=== PATIENT | male | born 1930 | race African-American/Black ===

== ENCOUNTER 2018-06-10 12:34 | Emergency (ER) | payer OTHER ==
[~2018-06-10] VITALS: Ht 177.8 cm; Wt 72.6 kg
[2018-06-10 12:58] VITALS: BP 145/80
--- NOTE | 2018-06-10 12:58 | NUR ---
ED Nurse Note: Pt from home walked in to ED d/t S/P fall on ground level happened 0800 this morning. Pt has a minor swelling around right eye and small abrasion beside it. Denies LOC. Pt also c/o bilateral LLE pain and swelling since mar 2018. No pain at this time. Pt is AAO x4, ambulatory with non labored breathing. Noted BLE pitting edema.
[2018-06-10] MEDS ORDERED: FLOMAX0.4 MG ORAL (13:05)
[2018-06-10] MEDS ORDERED: PROBENECID500 MG PO (13:05)
[2018-06-10] MEDS ORDERED: PROSCAR5 MG ORAL (13:06)
[2018-06-10] MEDS ORDERED: SYNTHROID25 MCG ORAL (13:07)
[2018-06-10] MEDS ORDERED: HYDROCHLOROTH12.5 M2 ORAL (13:07)
[2018-06-10] MEDS ORDERED: LISINOPRIL40 MG ORAL (13:07)
--- NOTE | 2018-06-10 13:27 | NUR ---
ED Nurse Note: Pt taken to CT via g[place]. KING.
--- NOTE | 2018-06-10 13:39 | NUR ---
ED Nurse Note: Pt came back from CT and stable.
--- NOTE | 2018-06-10 13:48 | Diagnostic Imaging Report ---
Indication: Headache Technique: Contiguous 5 mm thick transaxial imaging of the head obtained in a Siemens Sensation [address] scanner. Soft tissue and bone windows generated. Automatic Exposure Control was utilized. Total Dose length Product (DLP): 1312.[address] Dose Index Volume (CTDIvol): 70.38 mGy Comparison: none Findings: There is moderate prominence of the ventricles, basal cisterns, and cerebral sulci consistent with atrophy. Moderate, nonspecific, white matter hypoattenuation is noted throughout the brain consistent with chronic small vessel disease. There is no midline shift, edema, acute hemorrhage, mass effect, or abnormal extra-axial fluid collections. Bones and extra osseous soft tissues are unremarkable. Impression: No acute intracranial bleed, mass effect or edema. Moderate atrophy of the brain. Evidence of chronic small vessel disease involving white matter tracts. The CT scanner at [facility] is accredited by the [employer] and the scans are performed using dose optimization techniques as appropriate to a performed exam including Automatic Exposure control.
--- NOTE | 2018-06-10 14:28 | Emergency Room Report ---
History of Present Illness General Chief Complaint: Multiple Trauma/Fall Source: Patient (Jet Bar MD) Present Illness HPI Patient is an 87-year-old male presented after head injury. Patient was noted to have fallen from standing position. He reports hitting his head on a nightstand. He denies any definite loss of conscious but cannot recall why he fell. Patient reportedly lives alone. He denies any severe pain at this time. He denies any neck pain or weakness. He denies any recent illness or vomiting or diarrhea. Patient states that he had injury approximately 2 hours prior to arrival. (Jet Bar MD) Allergies: Coded Allergies: No Known Allergies (Unverified , 06/10/18) Patient History Reviewed Nursing Documentation: PMH: Agreed; PSxH: Agreed (Jet Bar MD) Nursing Documentation-PMH Past Medical History: No History, Except For Hx Hypertension: Yes (Jet Bar MD) Review of Systems All Other Systems: negative except mentioned in HPI (Jet Bar MD) Physical Exam Vital Signs Date Time Temp Pulse Resp B/P (MAP) Pulse Ox O2 Delivery O2 Flow Rate FiO2 06/10/18 12:48 98.2 67 20 151/81 97 Room Air Sp02 EP Interpretation: reviewed, normal General Appearance: normal inspection, well appearing, no apparent distress, alert, GCS 15, thin Head: atraumatic ENT: normal ENT inspection, hearing grossly normal, normal voice Neck: normal inspection, full range of motion, supple, no bony tend Respiratory: normal inspection, lungs clear, normal breath sounds, no respiratory distress, no retraction, no wheezing Cardiovascular #1: regular rate, rhythm, no edema Gastrointestinal: normal inspection, normal bowel sounds, non tender, soft, no guarding, no hernia Genitourinary: no CVA tenderness Musculoskeletal: normal inspection, back normal, normal range of motion Neurologic: normal inspection, alert, oriented x3, responsive, speech normal Psychiatric: normal inspection, judgement/insight normal, mood/affect normal Skin: normal color, no rash, other - superficial laceration to right eyebrow (Jet Bar MD) Medical Decision Making Diagnostic Impression: Primary Impression: Fall Additional Impressions: Head injury Eyebrow laceration ER Course Patient presented for a fall.Differential diagnosis included was not limited to neck fracture, CVA, close head injury, syncopal episode, basilar ischemia Because of complexity of patient's case laboratory testing and imaging studies were ordered. Patient is noted to have recent head injury. Patient reportedly lives alone. CT imaging of the head read by radiology showed atrophic changes without evident fracture or intracranial hemorrhage. Patient will be placed in observation. (Jet Bar MD) ER Course Patient was signed out to me for final disposition by Dr. Bar. I have also evaluated the patient. Patient is stable for transfer. Patient will be transferred to hospital per patient's insurance. Case was discussed with Dr. Serrano. He has accepted the patient. Patient will be transferred to [facility] [place] for further evaluation. Labs Test 06/10/18 14:00 06/10/18 15:06 White Blood Count 4.7 K/UL (4.8-10.8) Red Blood Count 4.15 M/UL (4.70-6.10) Hemoglobin 12.6 G/DL (14.2-18.0) Hematocrit 38.0 % (42.0-52.0) Mean Corpuscular Volume 91 FL (80-99) Mean Corpuscular Hemoglobin 30.3 PG (27.0-31.0) Mean Corpuscular Hemoglobin Concent 33.2 G/DL (32.0-36.0) Red Cell Distribution Width 11.3 % (11.6-14.8) Platelet Count 180 K/UL (150-450) Mean Platelet Volume 6.5 FL (6.5-10.1) Neutrophils (%) (Auto) 61.9 % (45.0-75.0) Lymphocytes (%) (Auto) 24.8 % (20.0-45.0) Monocytes (%) (Auto) 11.8 % (1.0-10.0) Eosinophils (%) (Auto) 0.6 % (0.0-3.0) Basophils (%) (Auto) 0.9 % (0.0-2.0) Prothrombin Time 11.4 SEC (9.30-11.50) Prothromb Time International Ratio 1.1 (0.9-1.1) Activated Partial Thromboplast Time 27 SEC (23-33) Sodium Level 137 MMOL/L (136-145) Potassium Level 3.7 MMOL/L (3.5-5.1) Chloride Level 101 MMOL/L (98-107) Carbon Dioxide Level 31 MMOL/L (21-32) Anion Gap 5 mmol/L (5-15) Blood Urea Nitrogen 18 mg/dL (7-18) Creatinine 1.3 MG/DL (0.55-1.30) Estimat Glomerular Filtration Rate mL/min (>60) Glucose Level 94 MG/DL (74-106) Calcium Level 9.6 MG/DL (8.5-10.1) Total Bilirubin 0.3 MG/DL (0.2-1.0) Aspartate Amino Transf (AST/SGOT) 19 U/L (15-37) Alanine Aminotransferase (ALT/SGPT) 28 U/L (12-78) Alkaline Phosphatase 65 U/L (46-116) Troponin I 0.002 ng/mL (0.000-0.056) Total Protein 8.0 G/DL (6.4-8.2) Albumin 3.3 G/DL (3.4-5.0) Globulin 4.7 g/dL Albumin/Globulin Ratio 0.7 (1.0-2.7) Urine Color Pale yellow Urine Appearance Clear Urine pH 7 (4.5-8.0) Urine Specific [place] 1.005 (1.005-1.035) Urine Protein 1+ (NEGATIVE) Urine Glucose (UA) Negative (NEGATIVE) Urine Ketones Negative (NEGATIVE) Urine Blood Negative (NEGATIVE) Urine Nitrite Negative (NEGATIVE) Urine Bilirubin Negative (NEGATIVE) Urine Urobilinogen Normal MG/DL (0.0-1.0) Urine Leukocyte Esterase Negative (NEGATIVE) Urine RBC 0-2 /HPF (0 - 0) Urine WBC 0-2 /HPF (0 - 0) Urine Squamous Epithelial Cells Few /LPF (NONE/OCC) Urine Bacteria Occasional /HPF (NONE) (José Miguel Mckenzie MD) EKG Diagnostic Results Rate: normal Rhythm: NSR ST Segments: no acute changes (José Miguel Mckenzie MD) Rhythm Strip Diag. Results EP Interpretation: yes Rate: 50 Rhythm: NSR, no PVC's, no ectopy (José Miguel Mckenzie MD) Last Vital Signs Date Time Temp Pulse Resp B/P (MAP) Pulse Ox O2 Delivery O2 Flow Rate FiO2 06/10/18 12:58 67 20 Room Air 06/10/18 12:48 98.2 151/81 97 Status: unchanged (Jet Bar MD) Status: improved (José Miguel Mckenzie MD) Disposition: XFER SHT-TRM HOSP Condition: Stable Referrals: NON PHYSICIAN (PCP) Jet Bar MD Jun 10, 2018 14:28 José Miguel Mckenzie MD Jun 10, 2018 16:39
[2018-06-10 14:35] LABS: BASOPHILS % (AUTO) 0.9 % (0.0-2.0); EOSINOPHILS % (AUTO) 0.6 % (0.0-3.0); HEMOGLOBIN 12.6 G/DL (14.2-18.0); LYMPHOCYTES % (AUTO) 24.8 % (20.0-45.0); MEAN CORPUSCULAR VOLUME 91 FL (80-99); MONOCYTES % (AUTO) 11.8 % (1.0-10.0); NEUTROPHILS % (AUTO) 61.9 % (45.0-75.0); PLATELET COUNT 180 K/UL (150-450); RED BLOOD COUNT 4.15 M/UL (4.70-6.10); RED CELL DISTRIBUTION WIDTH 11.3 % (11.6-14.8); WHITE BLOOD COUNT 4.7 K/UL (4.8-10.8)
[2018-06-10 14:42] LABS: ANION GAP 5 mmol/L (5-15); BLOOD UREA NITROGEN 18 mg/dL (7-18); CALCIUM 9.6 MG/DL (8.5-10.1); CARBON DIOXIDE 31 MMOL/L (21-32); CHLORIDE 101 MMOL/L (98-107); CREATININE 1.3 MG/DL (0.55-1.30); INR 1.1 (0.9-1.1); POTASSIUM 3.7 MMOL/L (3.5-5.1); SODIUM 137 MMOL/L (136-145)
[2018-06-10 14:47] LABS: ALANINE AMINOTRANSFERASE 28 U/L (12-78); ALBUMIN 3.3 G/DL (3.4-5.0); ALBUMIN/GLOBULIN RATIO 0.7 (1.0-2.7); ALKALINE PHOSPHATASE 65 U/L (46-116); ASPARTATE AMINO TRANSFERASE 19 U/L (15-37); BILIRUBIN,TOTAL 0.3 MG/DL (0.2-1.0)
[2018-06-10 15:00] VITALS: BP 158/90
[2018-06-10 15:22] LABS: APPEARANCE,URINE CLEAR; BILIRUBIN, URINE NEGATIVE (NEGATIVE); COLOR,URINE PALE YELLOW; GLUCOSE, URINE (UA) NEGATIVE (NEGATIVE); KETONES,URINE NEGATIVE (NEGATIVE); LEUKOCYTE ESTERASE ,URINE NEGATIVE (NEGATIVE); NITRITE,URINE NEGATIVE (NEGATIVE); PH,URINE 7 (4.5-8.0); PROTEIN,URINE 1+ (NEGATIVE); UROBILINOGEN,URINE NORMAL MG/DL (0.0-1.0)
--- NOTE | 2018-06-10 16:06 | NUR ---
ED Nurse Note: Warm blankets provided.
[2018-06-10 17:00] VITALS: BP 147/89
--- NOTE | 2018-06-10 18:02 | NUR ---
ED Nurse Note: Report given to Destine[facility] of [facility].
[2018-06-10] MEDS ORDERED: UNOBMED (18:31)
--- NOTE | 2018-06-10 19:10 | NUR ---
HAND-OFF: Report given to Esperanza MAXWELL.
--- NOTE | 2018-06-10 19:13 | NUR ---
Contacted [facility]- another 15 min.
[2018-06-10 19:40] VITALS: BP 151/85
== END 2018-06-10 19:40 | disposition short-term general hospital (02) ==
LOC: EMR 13:15 → EDBEDREQ 14:19 → EMR 19:40
DX: S01.119A Laceration without foreign body of unspecified eyelid and periocular area, initial encounter (principal); W19.XXXA Unspecified fall, initial encounter
CPT/HCPCS: 36415; 70450; 80053; 81001; 84484; 85025; 85610; 85730; 93005; 93970; 99285

== ENCOUNTER 2019-03-02 12:06 | Emergency (ER) | payer MEDICARE, OTHER ==
[~2019-03-02] VITALS: Ht 177.8 cm; Wt 72.6 kg
[~2019-03-02 12:06] MED LIST: FLOMAX0.4 MG ORAL; HYDROCHLOROTH12.5 M2 ORAL; LISINOPRIL40 MG ORAL; PROBENECID500 MG PO; PROSCAR5 MG ORAL; SYNTHROID25 MCG ORAL; UNOBMED
--- NOTE | 2019-03-02 12:32 | NUR ---
ED Nurse Note: Patient walked in due to pain on LLE, lateral side. Patient states 'I jumped off sidewalk block" and landed on left foot and started having pain. Patient applied FIFI wrap for comfort. Patient ambulating with steady gait. No bruise or redness noted on the affected area. Provided comfort measures.
--- NOTE | 2019-03-02 12:53 | NUR ---
ED Nurse Note: U/S tech at bedside.
--- NOTE | 2019-03-02 13:28 | Emergency Room Report ---
History of Present Illness General Chief Complaint: Lower Extremity Injury Source: Patient Present Illness HPI 88-year-old male with history of hypertension and CHF currently controlled here with his caregiver complaining of left ankle pain x2 days after fall and injury. Rating pain 3 out of 10 without radiation. Calf tenderness noted. However patient is wearing tight Joe bandage. Reports that he takes a water pill which does not recall the name. Reports that he often has lots of swelling in bilateral lower extremities. Is ambulating with a cane. Denies any generalized or unilateral weakness. Denies chest pain, shortness of breath , palpitation, headache and dizziness. No signs of trauma noted. Has not taken medication for symptom relief. Allergies: Coded Allergies: No Known Allergies (Unverified , 06/10/18) Patient History Past Medical History: see triage record Past Surgical History: unable to obtain Pertinent Family History: none Immunizations: UTD Reviewed Nursing Documentation: PMH: Agreed; PSxH: Agreed Nursing Documentation-PMH Past Medical History: No History, Except For Hx Hypertension: Yes Review of Systems All Other Systems: negative except mentioned in HPI Physical Exam Vital Signs Date Time Temp Pulse Resp B/P (MAP) Pulse Ox O2 Delivery O2 Flow Rate FiO2 03/02/19 12:11 97.9 71 17 119/67 (84) 98 Room Air Sp02 EP Interpretation: reviewed, normal General Appearance: no apparent distress, alert, GCS 15, non-toxic Head: normocephalic, atraumatic Eyes: bilateral eye normal inspection, bilateral eye PERRL ENT: hearing grossly normal, normal pharynx, no angioedema, normal voice Neck: full range of motion, supple/symm/no masses Respiratory: chest non-tender, lungs clear, normal breath sounds, no rhonchi, no respiratory distress, no retraction, speaking full sentences Cardiovascular #1: regular rate, rhythm, no edema, no murmur, normal capillary refill Cardiovascular #2: 2+ dorsalis pedis (R), 2+ dorsalis pedis (L) Gastrointestinal: normal bowel sounds, non tender, soft, non-distended, no guarding, no rebound Rectal: deferred Musculoskeletal: back normal, calf tenderness, Wendy's Sign negative Neurologic: alert, motor strength/tone normal, oriented x3, sensory intact, responsive, speech normal Psychiatric: judgement/insight normal, memory normal, mood/affect normal, no suicidal/homicidal ideation Skin: no rash Lymphatic: no adenopathy Medical Decision Making PA Attestation All my diagnosis and treatment plans were reviewed ad discussed with my supervising physician Dr. aSenz Diagnostic Impression: Primary Impression: Contusion of left ankle ER Course 88-year-old male with history of hypertension and CHF currently controlled here with his caregiver complaining of left ankle pain x2 days after fall and injury. Rating pain 3 out of 10 without radiation. Calf tenderness noted. However patient is wearing tight Joe bandage. Reports that he takes a water pill which does not recall the name. Reports that he often has lots of swelling in bilateral lower extremities. Is ambulating with a cane. Denies any generalized or unilateral weakness. Denies chest pain, shortness of breath , palpitation, headache and dizziness. No signs of trauma noted. Has not taken medication for symptom relief. Ddx considered but are not limited to: ankle sprain, ankle strain, ankle fracture, ankle contusion, DVT Vital signs: are WNL, pt. is afebrile H&PE are most consistent with: Ankle contusion ORDERS: ankle x-ray, venous duplex ultrasound of left lower extremity, Tylenol, Voltaren gel ED INTERVENTIONS: None required at this time. DISCHARGE: At this time pt. is stable for d/c to home. Will provide printed patient care instructions, and any necessary prescriptions. Care plan and follow up instructions have been discussed with the patient prior to discharge. Patient follow-up primary care provider, at this time no DVT noted, if worsening symptoms return to the emergency room avoid wearing Joe bandage type position Other X-Ray Diagnostic Results Other X-Ray Diagnostic Results : X-Ray ordered: Tib-fib # of Views/Limited Vs Complete: 2 View Indication: Swelling EP Interpretation: Yes PA Xray: Interpretation reviewed, by supervising MD, and agrees with findings. Interpretation: no dislocation, no soft tissue swelling, no fractures Impression: No acute disease Electronically Signed by: Andres Hendricks PA-C CT/MRI/US Diagnostic Results CT/MRI/US Diagnostic Results : Imaging Test Ordered: Venous duplex ultrasound of left lower extremity Impression Negative for DVT Last Vital Signs Date Time Temp Pulse Resp B/P (MAP) Pulse Ox O2 Delivery O2 Flow Rate FiO2 03/02/19 12:11 97.9 71 17 119/67 (84) 98 Room Air Disposition: HOME, SELF-CARE Condition: Stable Scripts Diclofenac Sodium (VOLTAREN) 100 Gm Gel..gram. 2 GM TP TID, #100 GM Prov: Andres Cunha 03/02/19 Acetaminophen* (TYLENOL EXTRA STRENGTH*) 500 Mg Tablet 500 MG ORAL Q8H PRN for Prn Headache/Temp > 101, #30 TAB 0 Refills Prov: Andres Cunha 03/02/19 Patient Instructions: Contusion, [id number] Additional Instructions: Follow-up with your primary care provider, take medication as directed, at this time no blood clot noted in left lower extremity. If worsening symptoms return to emergency room Andres Cunha Mar 02, 2019 13:28
[2019-03-02] MEDS ORDERED: VOLTAREN100 G1 TP (13:29)
[2019-03-02] MEDS ORDERED: TYLENOL EXTRA500 MG ORAL (13:29)
[2019-03-02 13:39] VITALS: BP 149/75
--- NOTE | 2019-03-02 13:42 | NUR ---
ED Nurse Note: Patient is being discharged from medical care. D/C instruction/prescription given to patient. All questions were answered. Ambulated out with steady gait with all his belongings.
--- NOTE | 2019-03-02 14:11 | Diagnostic Imaging Report ---
Indication: Leg pain Technique: Grayscale and duplex images of the left lower extremity veins Comparison: 06/10/2018 Findings: On the left, grayscale and duplex images demonstrate no evidence of intraluminal thrombus. Normal phasic Doppler waveforms, demonstrating normal augmentation response and no evidence of valvular insufficiency. Normal compressibility. No significant interim change Impression: Negative for evidence of lower extremity venous thrombosis
--- NOTE | 2019-03-02 14:16 | Diagnostic Imaging Report ---
Indication: Left leg pain Technique: 2 views of the left tibia and fibula Comparison: none Findings: No acute fractures. No dislocations. The joint spaces are preserved. Impression: Negative
== END 2019-03-02 13:43 | disposition home or self-care (01) ==
LOC: EMR 13:30
DX: S90.02XA Contusion of left ankle, initial encounter (principal); I10 Essential (primary) hypertension; W01.0XXA Fall on same level from slipping, tripping and stumbling without subsequent striking against object, initial encounter; Y93.9 Activity, unspecified; Y92.9 Unspecified place or not applicable; Z79.899 Other long term (current) drug therapy
CPT/HCPCS: 93971; 99284